=== PATIENT | male | born 1970 | race American Indian/Alaskan Native ===

== ENCOUNTER 2017-01-01 22:58 | Emergency (ER) | payer OTHER ==
[2017-01-01 23:13] VITALS: BP 103/67; PULSE 79; RESP 16; TEMP 97.9; O2SAT 96
[2017-01-01] MEDS ORDERED: Sodium Chloride 0.9% 1,000 ML IV STA (23:56)
[2017-01-02 00:42] LABS: RBC URINE 8 /hpf (0-3); URINE BACTERIA RARE (<OCC); URINE BILIRUBIN NEGATIVE (NEGATIVE); URINE BLOOD NEGATIVE (NEGATIVE); URINE COLOR YELLOW (YELLOW); URINE GLUCOSE (UA) NEG (Normal); URINE KETONE NEGATIVE (NEGATIVE); URINE LEUKOCYTE ESTERASE NEG Leu/uL (Negative); URINE PROTEIN 30 mg/dL (NEGATIVE); WBC URINE 1 /hpf (0-5)
[2017-01-02 01:03] LABS: BASO # 0.1 K/uL (0.0-0.2); EOS # 0.2 K/uL (0.0-0.7); EOS % 2.1 % (0.0-4.0); LYMPH # 3.3 K/uL (1.0-4.3); LYMPH % 40.3 % (20.0-40.0); MEAN CELL VOLUME 90.8 fl (80.0-94.0); MEAN CORPUSCULAR HEMOGLOBIN 31.2 pg (27.0-31.0); MEAN CORPUSCULAR HGB CONC 34.4 g/dL (33.0-37.0); MEAN PLATELET VOLUME 7.2 fl (7.2-11.7); MONO # 0.5 K/uL (0.0-0.8); NEUT # 4.1 K/uL (1.8-7.0); NEUT % 50.6 % (50.0-75.0); NRBC % 0.1 % (0.0-0.0); RED CELL DISTRIBUTION WIDTH 12.7 % (11.5-14.5); WHITE BLOOD COUNT 8.2 K/uL (4.8-10.8)
[2017-01-02 01:11] LABS: ALB/GLOB RATIO 1.5 (1.0-2.1); ALKALINE PHOSPHATASE 45 U/L (38-126); ALT/SGPT 45 U/L (21-72); AST/SGOT 22 U/L (17-59); BILIRUBIN,TOTAL 1.4 mg/dl (0.2-1.3); BLOOD UREA NITROGEN 10 mg/dl (9-20); CALCIUM 9.3 mg/dL (8.4-10.2); CARBON DIOXIDE 29 mmol/L (22-30); CHLORIDE 101 mmol/L (98-107); GFR AFRICAN-AMERICAN > 60; GLUCOSE,RANDOM 93 mg/dL (75-110); POTASSIUM 3.8 MMOL/L (3.6-5.0); SODIUM 139 mmol/l (132-148); TOTAL PROTEIN 7.4 G/DL (6.3-8.2)
[2017-01-02] MEDS ORDERED: Sodium Chloride 0.9% 50 ML IV ONE (01:24)
[2017-01-02] MEDS ORDERED: Iohexol 300 100 ML IJ ONE (01:24)
--- NOTE | 2017-01-02 02:08 | US ---
EXAM: US Scrotum CLINICAL HISTORY: 46 years old, male; Pain; Scrotum pain; Patient HX: Rt testicular pain x3days; Additional info: Right testicular pain TECHNIQUE: Real-time ultrasound of the scrotum with color Doppler and image documentation. COMPARISON: No relevant prior studies available. FINDINGS: Right testicle: 0.3 x 0.4 x 0.3 cm cyst. No torsion. Left testicle: No mass. No torsion. Epididymides: Unremarkable as visualized. Scrotum: Small RIGHT hydrocele. RIGHT varicocele. LEFT varicocele. IMPRESSION: 1. No sonographic evidence of testicular torsion. 2. Incidental/non-acute findings are described above.
--- NOTE | 2017-01-02 02:15 | ED PDOC ---
HPI: Male Pain Time Seen by Provider: 01/01/17 23:37 Chief Complaint (Nursing): Male Genitourinary Chief Complaint (Provider): groin pain History Per: Patient History/Exam Limitations: no limitations Associated Symptoms: denies: Fever, Chills, Nausea, Vomiting, Diarrhea, Loss Of Appetite, Back Pain, Chest Pain, Constipation, Urinary Symptoms Additional Complaint(s): 46yo M in ED for eval of right testicular and pelvis pain noted x 3-4 days after exercising states he felt a pop and since has had some pain. denies hematuira, dysuria, nausea or voimitng. Past Medical History Reviewed: Historical Data, Nursing Documentation, Vital Signs Vital Signs: Last Vital Signs Temp 97.9 F 01/01/17 23:10 Pulse 79 01/01/17 23:10 Resp 16 01/01/17 23:10 BP 103/67 01/01/17 23:10 Pulse Ox 96 01/01/17 23:10 - Medical History PMH: No Chronic Diseases - Family History Family History: States: No Known Family Hx - Allergies Allergies/Adverse Reactions: Allergies Allergy/AdvReac Type Severity Reaction Status Date / Time No Known Allergies Allergy Verified 01/01/17 23:13 Review of Systems ROS Statement: Except As Marked, All Systems Reviewed And Found Negative Cardiovascular: Negative for: Chest Pain Gastrointestinal: Negative for: Abdominal Pain Genitourinary Male: Positive for: Scrotal Pain Physical Exam - Reviewed Nursing Documentation Reviewed: Yes Vital Signs Reviewed: Yes - Physical Exam Appears: Positive for: Well, Non-toxic, No Acute Distress Skin: Positive for: Normal Color, Warm, DRY Cardiovascular/Chest: Positive for: Regular Rate, Rhythm Respiratory: Positive for: CNT, Normal Breath Sounds Gastrointestinal/Abdominal: Positive for: Normal Exam, Bowel Sounds, Soft. Negative for: Tenderness Male Genital Exam: Positive for: normal genitalia, normal prostate, scrotum tenderness (R), testicular tenderness (R). Negative for: inguinal tenderness, lesions Back: Positive for: Normal Inspection. Negative for: L CVA Tenderness, R CVA Tenderness Extremity: Positive for: Normal ROM Neurologic/Psych: Positive for: Alert, Oriented - Laboratory Results Result Diagrams: 01/02/17 01:00 01/02/17 01:00 - ECG O2 Sat by Pulse Oximetry: 96 - Progress ED Course And Treament: PT will get US and CT scan r/o hernia Medical Decision Making Medical Decision Making: US: FINDINGS: Right testicle: 0.3 x 0.4 x 0.3 cm cyst. No torsion. Left testicle: No mass. No torsion. Epididymides: Unremarkable as visualized. Scrotum: Small RIGHT hydrocele. RIGHT varicocele. LEFT varicocele. IMPRESSION: 1. No sonographic evidence of testicular torsion. 2. Incidental/non-acute findings are described above Ct scan: ABDOMEN and PELVIS: Intraperitoneal space: Unremarkable. No free air. No significant fluid collection. Bones/joints: There are mild degenerative changes of the spine. No acute fracture. No dislocation. Soft tissues: Unremarkable. Vasculature: Unremarkable. No abdominal aortic aneurysm. Lymph nodes: Unremarkable. No enlarged lymph nodes. IMPRESSION: 1. The appendix is unremarkable. 2. No other acute CT pathology. Thank you for allowing us to participate in the care of your patient. Dictated and Authenticated by: Edinson Allen MD 01/02/2017 1:50 AM Eastern Time ([place] & [place]) PT without evidence of hernia. PT advised however to have surgery f//u Disposition - Clinical Impression Clinical Impression: Groin pain - Patient ED Disposition Is Patient to be Admitted: No Counseled Patient/Family Regarding: Studies Performed, Diagnosis, Need For Followup - Disposition Referrals: [facility] [Outside] [facility] [place] [Outside] Disposition: Routine/Home Disposition Time: 02:32 Condition: STABLE Instructions: Testicle Pain (ED), Inguinal Hernia (ED) Forms: [employer] (Croatian)
--- NOTE | 2017-01-02 10:06 | CT ---
PROCEDURE: CT Abdomen and Pelvis with contrast HISTORY: rlq pain COMPARISON: None. TECHNIQUE: Contrast dose: 95 mL Omnipaque 300 Radiation dose: Total exam DLP = 663.40 mGy-cm. This CT exam was performed using one or more of the following dose reduction techniques: Automated exposure control, adjustment of the mA and/or kV according to patient size, and/or use of iterative reconstruction technique. FINDINGS: LOWER THORAX: Unremarkable. LIVER: Unremarkable. No gross lesion or ductal dilatation. GALLBLADDER AND BILE DUCTS: Unremarkable. PANCREAS: Unremarkable. No gross lesion or ductal dilatation. SPLEEN: Unremarkable. ADRENALS: Unremarkable. No mass. KIDNEYS AND URETERS: Unremarkable. No hydronephrosis. No solid mass. VASCULATURE: Unremarkable. No aortic aneurysm. BOWEL: Diverticulosis of the sigmoid colon. No evidence of diverticulitis. No bowel obstruction. Mild retained feces. APPENDIX: Normal appendix. PERITONEUM: Unremarkable. No free fluid. No free air. LYMPH NODES: Unremarkable. No enlarged lymph nodes. BLADDER: Nondistended REPRODUCTIVE: Normal prostate. BONES: Degenerative disc disease at L5-S1 with grade 1 retrolisthesis. OTHER FINDINGS: None. IMPRESSION: No evidence of acute appendicitis. Sigmoid diverticulosis without evidence of diverticulitis. No other acute abnormality. Minor findings as above. Preliminary interpretation of this examination was reported by [employer] at 1:50 a.m. on 01/02/2017. There is concurrence of this report with the preliminary interpretation.
== END 2017-01-02 02:45 | disposition home or self-care (01) ==
LOC: H.ER 22:58
DX: N43.2 Other hydrocele (principal); N50.3 Cyst of epididymis